=== PATIENT | male | born 1970 | race African-American/Black ===

== ENCOUNTER 2023-01-05 22:39 | Observation (INO) | payer BC, OTHER ==
[2023-01-05 22:48] VITALS: BMI 33.9
[2023-01-05 23:40] LABS: BASO % 0.9 % (0-2.0); EOS % 2.9 % (0-4.5); HEMATOCRIT 45.4 % (35.4-49); HEMOGLOBIN 15.4 GM/dL (11.7-16.9); LYMPH % 32.3 % (8-40); MCH 28.9 pg (25.7-33.7); MCHC 33.8 g/dl (32.0-35.9); MEAN CELL VOLUME 85.3 fl (80-96); MEAN PLT VOLUME 8.7 fl (7.5-11.1); MONO % 13.3 % (3.8-10.2); NEUT % 50.6 % (42.8-82.8); PLATELET COUNT 193 10^3/uL (134-434); RBC 5.32 M/mm3 (4.00-5.60)
[2023-01-05 23:53] LABS: PROTHROMBIN TIME (PATIENT) 11.6 SEC (9.7-13.0)
[2023-01-05 23:55] LABS: ACTIVATED PTT 24.1 SECONDS (25.2-36.5)
[2023-01-06 00:01] LABS: CHLORIDE 103 mmol/L (98-107); SODIUM 139 mmol/L (136-145)
[2023-01-06 00:04] LABS: ANION GAP 3 MMOL/L (8-16); CALCIUM 8.8 mg/dL (8.5-10.1); CO2 34 mmol/L (21-32)
[2023-01-06 00:05] LABS: GLUCOSE,RANDOM 98 mg/dL (74-106)
[2023-01-06 00:07] LABS: CREATININE 1.8 mg/dL (0.55-1.3); SGOT/AST 18 U/L (15-37)
[2023-01-06 00:08] LABS: SGPT/ALT 33 U/L (13-61)
[2023-01-06 00:10] LABS: BILIRUBIN,TOTAL 0.4 mg/dL (0.2-1); CHOLESTEROL 200 mg/dL (50-200); LDL CHOLESTEROL (ONLY SJRH) 118 mg/dL (5-100); TOT PROT 7.1 g/dl (6.4-8.2)
[2023-01-06 00:11] LABS: ALK PHOS 60 U/L (45-117)
[2023-01-06 00:12] LABS: HDL CHOLESTEROL 68 mg/dL (40-60)
[2023-01-06 02:06] LABS: URINE APPEARANCE CLEAR; URINE BILIRUBIN NEGATIVE (NEGATIVE); URINE COLOR YELLOW; URINE GLUCOSE (UA) NEGATIVE (NEGATIVE); URINE KETONE TRACE (NEGATIVE); URINE LEUK ESTERASE NEGATIVE (NEGATIVE); URINE NITRITE NEGATIVE (NEGATIVE); URINE PROTEIN NEGATIVE (NEGATIVE)
[2023-01-06 02:24] VITALS: TEMP 98.5
[2023-01-06] MEDS ORDERED: ASPIRIN 81 MG CHEWABLE TABLETS PO ONE (03:07)
[2023-01-06] MEDS ORDERED: ASPIRIN 81 MG CHEWABLE TABLETS ONE (03:44)
[2023-01-06 08:09] LABS: HEMATOCRIT 44.1 % (35.4-49); HEMOGLOBIN 14.3 GM/dL (11.7-16.9); MCH 28.4 pg (25.7-33.7); MCHC 32.4 g/dl (32.0-35.9); MEAN CELL VOLUME 87.4 fl (80-96); MEAN PLT VOLUME 8.7 fl (7.5-11.1); PLATELET COUNT 183 10^3/uL (134-434); RBC 5.05 M/mm3 (4.00-5.60); WHITE BLOOD COUNT 4.2 K/mm3 (4.0-10.0)
[2023-01-06 08:36] LABS: POTASSIUM 3.9 mmol/L (3.5-5.1)
[2023-01-06 08:42] LABS: ALBUMIN 3.8 g/dl (3.4-5.0); CALCIUM 8.8 mg/dL (8.5-10.1)
[2023-01-06 08:43] LABS: BLOOD UREA NITROGEN 18.8 mg/dL (7-18); MAGNESIUM 2.6 mg/dL (1.8-2.4)
[2023-01-06 08:46] LABS: CREATININE 1.6 mg/dL (0.55-1.3); PHOSPHOROUS 3.9 mg/dL (2.5-4.9)
[2023-01-06 08:47] LABS: BILIRUBIN,TOTAL 0.2 mg/dL (0.2-1); TOT PROT 6.7 g/dl (6.4-8.2)
[2023-01-06] MEDS ORDERED: DEXAMETHASONE SOD PHOSPHATE 10 MG/1 ML VIAL ONE (09:22)
[2023-01-06] MEDS: ASPIRIN 81 MG CHEWABLE TABLETS PO SCH ×2 (10:25→11:21)
[2023-01-06 11:20] VITALS: PULSE 85
[2023-01-06 13:27] LABS: METHADONE, UR NEGATIVE (NEGATIVE); OPIATES, URI NEGATIVE (NEGATIVE); PHENCYCLIDINE,URINE NEGATIVE (NEGATIVE); URINE BENZODIAZEPINES NEGATIVE (NEGATIVE)
[2023-01-06 13:28] LABS: COCAINE, UR NEGATIVE (NEGATIVE); URINE AMPHETAMINES NEGATIVE (NEGATIVE); URINE BARBITURATES NEGATIVE (NEGATIVE)
[2023-01-06 16:20] VITALS: BP 142/88; RESP 75
[2023-01-06] MEDS ORDERED: ATORVASTATIN CA 40 MG TABLET (FP) PO SCH (22:00)
== END 2023-01-06 16:30 | disposition home or self-care (01) ==
LOC: JER 22:39 → JERBED 01-06 02:34
PROVIDERS: ADMIT Internal Medicine
DX: I16.0 Hypertensive urgency (principal); R20.0 Anesthesia of skin; R20.2 Paresthesia of skin; E78.5 Hyperlipidemia, unspecified; E66.8 Other obesity
CPT/HCPCS: 36415; 70450-TC; 70551-TC; 80053; 80061; 80307; 81003; 82550; 82553; 82962; 83036; 83735; 84100; 84484; 85025; 85027; 85610; 85730; 86850; 86900; 86901; 93005; 93010; 93306-TC; 93880-TC; 99285-25; G0378